=== PATIENT | female | born 1955 | race Caucasian/White ===

== ENCOUNTER 2018-03-08 18:28 | Emergency (ER) | payer OTHER ==
[~2018-03-08] VITALS: Ht 167.6 cm; Wt 88.0 kg
[~2018-03-08 18:28] MED LIST: METOPROLOL SUC100 M2 PO; TRANDOLAPRIL4 MG PO; TRIAMTERENE/HCT1 TA2 PO
[2018-03-08 18:40] VITALS: Ht 167.6 cm; Wt 88.0 kg
[2018-03-08 22:18] VITALS: BP 184/102
== END 2018-03-08 22:18 | disposition home or self-care (01) ==
LOC: ED 18:28
DX: C50.912 Malignant neoplasm of unspecified site of left female breast (principal); R22.32 Localized swelling, mass and lump, left upper limb; I10 Essential (primary) hypertension
CPT/HCPCS: Q0092

== ENCOUNTER 2019-04-04 21:44 | Emergency (ER) | payer OTHER ==
[~2019-04-04] VITALS: Ht 167.6 cm; Wt 81.6 kg
[2019-04-04 21:52] VITALS: Ht 167.6 cm; Wt 81.6 kg
[2019-04-04 23:25] LABS: BASOPHIL % 0.3 % (0-2); PLATELET COUNT 222 x10^3mcL (130-400)
[2019-04-04 23:27] LABS: CALCIUM 8.5 mg/dL (8.5-10.1); CARBON DIOXIDE 31.4 mmol/L (21-32); POTASSIUM SERUM 3.6 mmol/L (3.5-5.1)
[2019-04-04 23:29] LABS: RED CELL DISTRIBUTION WIDTH 14.6 % (11.5-14.5)
[2019-04-04 23:32] LABS: BILIRUBIN TOTAL 0.3 mg/dL (0.20-1.00); TOTAL PROTEIN, SERUM 7.1 g/dL (6.4-8.2)
[2019-04-04 23:35] LABS: ALBUMIN 3.3 g/dL (3.4-5.0)
[2019-04-04 23:48] LABS: UA SPECIFIC GRAVITY 1.015 (1.005-1.035); microscopic required? YES; urine erythrocyte TRACE (NEGATIVE)
[2019-04-04 23:55] VITALS: BP 156/89
== END 2019-04-04 23:55 | disposition short-term general hospital (02) ==
LOC: ED 21:44
PROVIDERS: Emergency Medicine
DX: G93.89 Other specified disorders of brain (principal); I16.0 Hypertensive urgency; R41.82 Altered mental status, unspecified; R79.89 Other specified abnormal findings of blood chemistry; Z85.3 Personal history of malignant neoplasm of breast
CPT/HCPCS: J1100; J3490; Q0092

== ENCOUNTER 2020-04-03 18:16 | Emergency (ER) | payer OTHER ==
[~2020-04-03] VITALS: Ht 167.6 cm; Wt 69.9 kg
[2020-04-03 18:48] VITALS: Ht 167.6 cm; Wt 69.9 kg
[2020-04-03 20:54] LABS: BASOPHIL % 0.5 % (0-2); PLATELET COUNT 260 x10^3mcL (130-400)
[2020-04-03 20:55] LABS: RED CELL DISTRIBUTION WIDTH 16.9 % (11.5-14.5)
[2020-04-03 21:01] LABS: CALCIUM 8.5 mg/dL (8.5-10.1); CARBON DIOXIDE 30.6 mmol/L (21-32); CHLORIDE SERUM 103 mmol/L (98-107); CREATININE SERUM 0.8 mg/dL (0.6-1.0); GFR1 > 60 mL/min; GLUCOSE SERUM 105 mg/dL (74-106); SODIUM SERUM 137 mmol/L (136-145)
[2020-04-03 21:06] LABS: ALKALINE PHOSPHATASE 117 U/L (46-116); ALT/SGPT 46 U/L (14-59); AST/SGOT 21 U/L (15-37); CHOLESTEROL 194 mg/dL (<200); CHOLESTEROL/HDL RATIO 3.9; HDL CHOLESTEROL 50 mg/dL (40-60); TOTAL PROTEIN, SERUM 6.6 g/dL (6.4-8.2); TRIGLYCERIDES 152 mg/dL (<150)
[2020-04-03 21:16] LABS: FREE THYROXINE INDEX 2.9 ug/dL (1.4-4.5); T4(THYROXINE) 8.7 ug/dL (4.7-13.3)
[2020-04-03 21:57] LABS: T3 TOTAL 1.04 ng/mL
[2020-04-03 23:00] VITALS: BP 155/99
[2020-04-04 00:02] LABS: UA SPECIFIC GRAVITY 1.015 (1.005-1.035); microscopic required? YES; urine erythrocyte TRACE (NEGATIVE)
== END 2020-04-03 23:00 | disposition home or self-care (01) ==
LOC: ED 18:16
PROVIDERS: Specialist
DX: I10 Essential (primary) hypertension (principal); R42 Dizziness and giddiness; Z85.3 Personal history of malignant neoplasm of breast
CPT/HCPCS: 83880; 84439; Q0092